=== PATIENT | female | born 1990 | race American Indian/Alaskan Native ===

== ENCOUNTER 2017-06-18 14:28 | Emergency (ER) | payer SELFPAY ==
[2017-06-18 14:43] VITALS: BP 127/91
--- NOTE | 2017-06-18 15:23 | Emergency Department Report ---
Abscess Boil HPI - HPI Chief Complaint: Skin/Abscess/Foreign Body Stated Complaint: BOIL IN RIGHT ARMPIT Time Seen by Provider: 06/18/17 15:19 Duration: 1 Week Location: Upper Extremity Severity: Mild History: Yes Pain, Yes Previous History, No Fever, No Purulent Drainage, No Numbness, No Foreign Body, No Insect Bite Home Medications: Previous Rx's Medication Instructions Recorded Last Taken Type Sulfamethoxazole/Trimethoprim 1 each PO BID #10 tablet 06/18/17 Unknown Rx [Bactrim DS TAB] traMADol [Ultram] 50 mg PO Q6HR PRN #12 tablet 06/18/17 Unknown Rx Allergies/Adverse Reactions: Allergies Allergy/AdvReac Type Severity Reaction Status Date / Time No Known Allergies Allergy Unverified 06/18/17 14:43 ED Review of Systems ROS: Stated complaint: BOIL IN RIGHT ARMPIT Other details as noted in HPI Comment: All other systems reviewed and negative Constitutional: no symptoms reported, see HPI. denies: chills Eyes: as per HPI. denies: eye pain ENT: as per HPI. denies: ear pain, throat pain Respiratory: no symptoms reported, see HPI. denies: cough, orthopnea Cardiovascular: as per HPI. denies: chest pain, palpitations, dyspnea on exertion, orthopnea Endocrine: no symptoms reported, see HPI. denies: excessive sweating, flushing , intolerance to cold, intolerance to heat Gastrointestinal: as per HPI. denies: abdominal pain, nausea, vomiting Genitourinary: as per HPI. denies: urgency, dysuria Musculoskeletal: as per HPI. denies: back pain Skin: as per HPI, lesions Neurological: as per HPI. denies: headache, weakness Psychiatric: as per HPI. denies: anxiety, depression Hematological/Lymphatic: as per HPI. denies: easy bleeding ED Past Medical Hx - Past Medical History Additional medical history: hidradenitis - Surgical History Past Surgical History?: Yes Additional Surgical History: cholecystectomy - Social History Smoking Status: Former Smoker Substance Use Type: Alcohol - Medications Home Medications: Home Medications Medication Instructions Recorded Confirmed Last Taken Type Sulfamethoxazole/Trimethoprim 1 each PO BID #10 tablet 06/18/17 Unknown Rx [Bactrim DS TAB] traMADol [Ultram] 50 mg PO Q6HR PRN #12 tablet 06/18/17 Unknown Rx ED Abscess Boil Physical Exam - Exam General: Vital signs noted. No distress. Alert and acting appropriately. small dime size boil under r arm a/c will need gen surg fu ED Course Vital Signs 06/18/17 14:34 Temperature 98.3 F Pulse Rate 74 Blood Pressure 127/91 O2 Sat by Pulse 99 Oximetry - Reevaluation(s) Reevaluation #1: 06/18/17 15:20 vss no fever non ill no toxic small boil wo flat. no i/d needed Critical care attestation.: If time is entered above; I have spent that time in minutes in the direct care of this critically ill patient, excluding procedure time. ED Medical Decision Making - Medical Decision Making see note - Differential Diagnosis a/c hidradenitis ED Disposition Clinical Impression: Hidradenitis Disposition: DC-01 TO HOME OR SELFCARE Is pt being admited?: No Does the pt Need Aspirin: No Condition: Stable Instructions: Abscess (ED) Additional Instructions: epsom salt soaks three times per day for 20 min each time med as ordered follow up gen surg Referrals: PRIMARY CARE, [Primary Care Provider] - 3-5 Days ONOFRE CHAMBERS DO [Staff Physician] - 3-5 Days Time of Disposition: 15:21
== END 2017-06-18 15:36 | disposition home or self-care (01) ==
LOC: ED 14:28
DX: L73.2 Hidradenitis suppurativa (principal); Z87.891 Personal history of nicotine dependence; Z90.49 Acquired absence of other specified parts of digestive tract
CPT/HCPCS: 99282

== ENCOUNTER 2017-06-20 21:57 | Emergency (ER) | payer SELFPAY ==
[2017-06-20] MEDS ORDERED: TYLENOL PO ONE (22:31)
[2017-06-20] MEDS ORDERED: TYLENOL ONE ×2 (22:33)
[2017-06-21 00:51] VITALS: BP 142/95
[2017-06-21] MEDS ORDERED: MORPHINE IM ONE (01:23)
[2017-06-21] MEDS ORDERED: ZOFRAN IM ONE (01:24)
[2017-06-21] MEDS ORDERED: TRIMOX PO ONE (01:24)
--- NOTE | 2017-06-21 01:28 | Emergency Department Report ---
ED ENT HPI - General Chief complaint: Dental/Oral Stated complaint: HEADACHE/MOUTH PAIN Time Seen by Provider: 06/21/17 01:23 Source: patient Mode of arrival: Ambulatory Limitations: No Limitations - History of Present Illness Initial comments: 27 y/o female presents to the emergency room with complaints of dental pain since yesterday. Pain is progressively getting worse. Patient has tried over- the-counter remedy, she has used Anbesol without any relief. No fever, no nausea, no vomiting, no diarrhea MD complaint: tooth pain -: Gradual (since yesterday progressively getting worse) Location: tooth # (30, 31, 32) Severity: moderate Severity scale (0 -10): 7 Quality: stabbing, aching, sharp Consistency: constant Improves with: none Worsens with: swallowing, eating Context- Dental: history of dental caries, poor dental care Associated Symptoms: gum swelling, toothache. denies: fever, cough, pain with swallowing, sore throat, tinnitus, hearing loss, discharge from ear, rhinorrhea - Related Data Previous Rx's Medication Instructions Recorded Last Taken Type Sulfamethoxazole/Trimethoprim 1 each PO BID #10 tablet 06/18/17 Unknown Rx [Bactrim DS TAB] traMADol [Ultram] 50 mg PO Q6HR PRN #12 tablet 06/18/17 Unknown Rx Amoxicillin [Trimox CAP] 500 mg PO Q8H #30 capsule 06/21/17 Unknown Rx Ibuprofen [Motrin 800 MG tab] 800 mg PO Q8HR PRN #30 tablet 06/21/17 Unknown Rx Allergies Allergy/AdvReac Type Severity Reaction Status Date / Time No Known Allergies Allergy Unverified 06/18/17 14:43 ED Dental HPI - General Chief complaint: Dental/Oral Stated complaint: HEADACHE/MOUTH PAIN Time Seen by Provider: 06/21/17 01:23 Source: patient Mode of arrival: Ambulatory Limitations: No Limitations - Related Data Previous Rx's Medication Instructions Recorded Last Taken Type Sulfamethoxazole/Trimethoprim 1 each PO BID #10 tablet 06/18/17 Unknown Rx [Bactrim DS TAB] traMADol [Ultram] 50 mg PO Q6HR PRN #12 tablet 06/18/17 Unknown Rx Amoxicillin [Trimox CAP] 500 mg PO Q8H #30 capsule 06/21/17 Unknown Rx Ibuprofen [Motrin 800 MG tab] 800 mg PO Q8HR PRN #30 tablet 06/21/17 Unknown Rx Allergies Allergy/AdvReac Type Severity Reaction Status Date / Time No Known Allergies Allergy Unverified 06/18/17 14:43 ED Review of Systems ROS: Stated complaint: HEADACHE/MOUTH PAIN Other details as noted in HPI Comment: All other systems reviewed and negative Constitutional: see HPI. denies: diaphoresis, fever, malaise, weakness Eyes: denies: eye pain, eye discharge, vision change ENT: as per HPI, dental pain. denies: ear pain, throat pain Respiratory: denies: cough, shortness of breath, SOB with exertion, SOB at rest Cardiovascular: denies: chest pain, palpitations, dyspnea on exertion, edema, syncope, paroxysmal nocturnal dyspnea Endocrine: no symptoms reported Gastrointestinal: denies: nausea, vomiting, diarrhea, constipation, hematemesis Genitourinary: denies: dysuria, frequency, discharge Skin: denies: pruritus Neurological: denies: numbness, paresthesias ED Past Medical Hx - Past Medical History Previous Medical History?: No Additional medical history: hidradenitis - Surgical History Additional Surgical History: cholecystectomy - Social History Smoking Status: Current Some Day Smoker Substance Use Type: Alcohol, Marijuana - Medications Home Medications: Home Medications Medication Instructions Recorded Confirmed Last Taken Type Sulfamethoxazole/Trimethoprim 1 each PO BID #10 tablet 06/18/17 Unknown Rx [Bactrim DS TAB] traMADol [Ultram] 50 mg PO Q6HR PRN #12 tablet 06/18/17 Unknown Rx Amoxicillin [Trimox CAP] 500 mg PO Q8H #30 capsule 06/21/17 Unknown Rx Ibuprofen [Motrin 800 MG tab] 800 mg PO Q8HR PRN #30 tablet 06/21/17 Unknown Rx ED Physical Exam - General Limitations: No Limitations General appearance: alert, in distress (moderate distress) - Head Head exam: Present: atraumatic, normocephalic - Eye Eye exam: Present: normal appearance, PERRL, EOMI. Absent: scleral icterus, conjunctival injection - ENT ENT exam: Present: mucous membranes moist, other (swollen gums overlying tooth # 30, 31 and 32. Some areas of dental caries noted) - Neck Neck exam: Present: normal inspection, full ROM, lymphadenopathy. Absent: tenderness, meningismus, thyromegaly - Respiratory Respiratory exam: Present: normal lung sounds bilaterally. Absent: respiratory distress, wheezes, rales, rhonchi, stridor, chest wall tenderness, accessory muscle use, decreased breath sounds, prolonged expiratory - Cardiovascular Cardiovascular Exam: Present: regular rate, normal rhythm, normal heart sounds. Absent: bradycardia, tachycardia, systolic murmur, diastolic murmur - GI/Abdominal GI/Abdominal exam: Present: soft, normal bowel sounds. Absent: distended, tenderness, guarding, rebound, hyperactive bowel sounds, hypoactive bowel sounds , organomegaly, mass, bruit - Neurological Exam Neurological exam: Present: alert, oriented X3, CN II-XII intact, motor sensory deficit ED Course Vital Signs 06/20/17 06/20/17 06/20/17 22:10 22:26 22:32 Temperature 98.9 F 98.9 F Pulse Rate 80 80 Respiratory 18 18 18 Rate Blood Pressure 129/83 129/83 Blood Pressure [Right] O2 Sat by Pulse 100 100 Oximetry 06/21/17 00:50 Temperature 98 F Pulse Rate 69 Respiratory 18 Rate Blood Pressure Blood Pressure 142/95 [Right] O2 Sat by Pulse 100 Oximetry Critical Care Time: No Critical care attestation.: If time is entered above; I have spent that time in minutes in the direct care of this critically ill patient, excluding procedure time. ED Disposition Clinical Impression: Dental abscess, Gingivitis Disposition: TO HOME OR SELFCARE Is pt being admited?: No Does the pt Need Aspirin: No Condition: Stable Instructions: Dental Abscess (ED), Gingivitis (ED) Additional Instructions: Gargle with warm salt water as needed. Follow up with a dentist of choice [facility] Prescriptions: Amoxicillin [Trimox CAP] 500 mg PO Q8H #30 capsule Ibuprofen [Motrin 800 MG tab] 800 mg PO Q8HR PRN #30 tablet PRN Reason: Pain Referrals: PRIMARY CARE,MD [Primary Care Provider] - 3-5 Days Time of Disposition: 02:10
[2017-06-21] MEDS ORDERED: MORPHINE ONE (02:27)
== END 2017-06-21 02:35 | disposition home or self-care (01) ==
LOC: ED 21:57
DX: K04.7 Periapical abscess without sinus (principal); K05.10 Chronic gingivitis, plaque induced; F17.210 Nicotine dependence, cigarettes, uncomplicated; F12.10 Cannabis abuse, uncomplicated
CPT/HCPCS: 96372; 99282; J2270; J2405

== ENCOUNTER 2017-10-03 15:11 | Emergency (ER) | payer SELFPAY ==
--- NOTE | 2017-10-03 16:05 | Emergency Department Report ---
ED Head Injury/Laceration HPI - HPI Occurred When: Today Tetanus Status: Up to Date Symptoms: Loss of Consciousness: No, Nausea: No, Blurred Vision: No, Unusual Behavior: No, Headache: Yes, Swelling: No, Break in Skin: Yes, Bleeding: Yes Other History: 27-year-old female past medical history none presents with complaint of laceration to top of scalp. Patient accidentally hit the top of her head on a staircase while running down stairs. Patient states she feels slightly dizzy and has mild headache but is otherwise fully lucid and oriented 3. Patient is ambulatory without assistance accompanied by family member at bedside. Visible bleeding from top of scalp. Tetanus vaccine up-to-date as per patient. Patient denies any other injuries. ED General PMH - Past Medical History General Medical History: no medical history - Social History Smoking Status: Current Every Day Smoker ED Review of Systems ROS: Stated complaint: FALL/HEAD INJURY Other details as noted in HPI Constitutional: denies: chills, fever Eyes: denies: eye pain, eye discharge, vision change ENT: denies: ear pain, throat pain Respiratory: denies: cough, shortness of breath, wheezing Cardiovascular: denies: chest pain, palpitations Endocrine: no symptoms reported Gastrointestinal: denies: abdominal pain, nausea, diarrhea Genitourinary: denies: urgency, dysuria, discharge Musculoskeletal: denies: back pain, joint swelling, arthralgia Skin: denies: rash, lesions Neurological: denies: headache, weakness, paresthesias Psychiatric: denies: anxiety, depression Hematological/Lymphatic: denies: easy bleeding, easy bruising Head Inj w/lac Physical Exam - Exam General: Vital signs noted. No distress. Alert and acting appropriately. Adult Head Front + Back: 1 - 1.5 cm horizontal laceration here Wound Length (cm): 2 Chest, Abd, & Ext: Yes Clear Lung Sounds, Yes Regular Heart Rhythm, No Neck Pain , No Chest Injury/Pain, No Heart Murmur, No Abdominal Tenderness, No Back Tenderness, No Extremity Injury Neuroligical (Head Inj W/O Lac: Yes Normal Speech, Yes Normal Gait, No Lethargy , No Disorientation, No Focal Numbness, No Focal Weakness - Laceration /Wound Repair Head Wound Location: head Wound Length (cm): 2 Wound's Depth, Shape: superficial Irrigated w/ Saline (ccs): 200 Anesthesia: 1% Lidocaine Volume Anesthetic (ccs): 3 Progress: Area of laceration anesthetized and stapled using 3 christiano. Good wound approximation achieved ED Critical Care Note - Critical Care Note Comments: A/P: Scalp Laceration, concussion 1- Christiano to be removed in 7 days 2-tetanus vaccine up-to-date 3-Tylenol when necessary, triple antibiotic ointment 4- pt advised to return to the ED for any fevers chills pus drainage erythema at site of laceration. 5- Cranial nerves 2, 3, 4, 5, 6, 7, 8,10, 11, 12 intact on clinical exam, patient is fully lucid awake alert and oriented 3 conversant. Denies any upper or lower extremity paresthesias and has 5/5 strength in bilateral upper and lower extremities on clinical exam. Follow-up with primary medical doctor this week. patient given precautions, instructed to return to the ED for any confusion, lethargy, chest pain, shortness of breath, abdominal pain, inability to tolerate by mouth, paresthesias, inability to ambulate. 6- I discussed case with Dr. Bruce before discharge. Patient has no clinical signs of mastoiditis on examination. No postauricular tenderness or swelling behind auricle. No overt signs of infection and in her ear canal or overlying tympanic membrane. Patient is asymptomatic. I advised patient to follow up with primary care or to return to the ED for any worsening headaches ear drainage extrusion of ear swelling around the ear or redness of the area surrounding ear. Patient agreed to these parameters. Pt independently ambulatory without assistance upon discharge ED Disposition Clinical Impression: Concussion Qualifiers: Encounter type: initial encounter Loss of consciousness presence/duration: without LOC Qualified Code(s): S06.0X0A - Concussion without loss of consciousness, initial encounter Minor head injury Qualifiers: Encounter type: initial encounter Qualified Code(s): S00.90XA - Unspecified superficial injury of unspecified part of head, initial encounter Scalp laceration Qualifiers: Encounter type: initial encounter Qualified Code(s): S01.01XA - Laceration without foreign body of scalp, initial encounter Disposition: DC-01 TO HOME OR SELFCARE Is pt being admited?: No Does the pt Need Aspirin: No Condition: Stable Instructions: Laceration (ED), Concussion (ED), Acute Wound Care (ED), Post Concussion Syndrome (ED), Staple Care (ED) Additional Instructions: Christiano to be removed in 7 days Prescriptions: Acetaminophen [Acetaminophen TAB] 500 mg PO Q6HR PRN #30 tablet PRN Reason: Pain Bacitracin Zinc Oint [Antibiotic Oint] 1 applicatio TP BID #1 tube Referrals: [facility] [Outside] - 3-5 Days [facility] [Outside] - 3-5 Days Forms: Accompanied Note, Work/School Release Form(ED) Time of Disposition: 17:20
[2017-10-03] MEDS ORDERED: TYLENOL #3 PO ONE (16:09)
[2017-10-03] MEDS ORDERED: ZOFRAN ODT PO ONE (16:09)
--- NOTE | 2017-10-03 16:32 | Emergency Department Report ---
Chief Complaint: Head Injury Stated Complaint: FALL/HEAD INJURY Time Seen by Provider: 10/03/17 16:03 - HPI History of Present Illness: The patient is a 27-year-old female who presents for evaluation of headache. The patient reports sustaining trauma to the head after running into a staircase at home one to 2 hours prior to arrival. She complains of severe throbbing headache since the incident. She did sustain a scalp wound and bleeding which is not controlled. She denies neck pain, chest pain, abdominal pain, back pain, dyspnea, pain or injury to the extremities. - Exam Vital Signs: Vital Signs 10/03/17 15:17 Temperature 97.8 F Pulse Rate 80 Respiratory 16 Rate Blood Pressure 131/97 O2 Sat by Pulse 100 Oximetry MSE screening note: Focused history and physical exam performed. Due to findings the following was ordered: CT scan of the head and facial bones ordered. A small ones on his scalp laceration was identified. The patient received laceration repair once medically cleared. ED Disposition for MSE Condition: Stable Referrals: PRIMARY CARE, [Primary Care Provider] - 3-5 Days
--- NOTE | 2017-10-03 16:50 | Cat Scan Report ---
FINAL REPORT EXAM: CT HEAD/BRAIN WO CON HISTORY: pain, trauma TECHNIQUE: CT head without contrast PRIORS: None. FINDINGS: No acute intra-axial or extra-axial hemorrhage is identified. There is no evidence of midline shift or mass effect. The ventricles and sulci are within normal limits. Chong-white matter differentiation is intact. No acute parenchymal abnormalities seen. Bony calvarium is grossly intact. Small amount of increased density is noted within left mastoid air cells which may reflect mastoiditis could be acute or. IMPRESSION: Findings suggestive of left mastoiditis which may be acute or chronic No acute intracranial findings
--- NOTE | 2017-10-03 16:53 | Cat Scan Report ---
FINAL REPORT EXAM: CT FACIAL BONES WO CON HISTORY: pain, trauma TECHNIQUE: Maxillofacial CT with coronal and sagittal multiplanar reconstruction PRIORS: None. FINDINGS: The nasal bone is intact. The zygomatic arches are within normal limits. No evidence of fluid level within the paranasal sinuses. No intraorbital abnormalities seen. No facial fractures are identified. The TM joints and the mandible are within normal limits. IMPRESSION: Negative. No evidence of acute facial bone fracture.
[2017-10-03 17:39] VITALS: BP 130/78
== END 2017-10-03 17:39 | disposition home or self-care (01) ==
LOC: ED 15:11
DX: S06.0X0A Concussion without loss of consciousness, initial encounter (principal); S01.01XA Laceration without foreign body of scalp, initial encounter; F17.200 Nicotine dependence, unspecified, uncomplicated; W10.8XXA Fall (on) (from) other stairs and steps, initial encounter; Y93.89 Activity, other specified; Y92.89 Other specified places as the place of occurrence of the external cause; Y99.8 Other external cause status
CPT/HCPCS: 70450; 70486; 99283; Q0162

== ENCOUNTER 2018-04-27 09:14 | Emergency (ER) | payer SELFPAY ==
[2018-04-27 09:34] VITALS: BP 149/106
[2018-04-27 10:22] LABS: HCG Qualitative,Urine Negative (Negative)
[2018-04-27 10:23] LABS: Bacteria,Urine 1+ /HPF (Negative); Bilirubin,Urine NEG (Negative); Blood,Urine NEG (Negative); Color,Urine Yellow (Yellow); Mucus,Urine 3+ /HPF; Protein,Urine <15 mg/dL mg/dL (Negative)
== END 2018-04-27 09:52 | disposition left against medical advice (07) ==
LOC: ED 09:14
DX: R11.10 Vomiting, unspecified (principal); R10.10 Upper abdominal pain, unspecified; R07.89 Other chest pain; Z53.21 Procedure and treatment not carried out due to patient leaving prior to being seen by health care provider
CPT/HCPCS: 81001; 81025; 93005; 93010

== ENCOUNTER 2020-10-29 19:13 | Emergency (ER) | payer SELFPAY ==
[2020-10-29 19:57] VITALS: BP 163/111
[2020-10-29] MEDS ORDERED: LIDOCAINE (2%) 20 MG/1 ML VIAL 20 ML MDV INFILTRATI STA (19:57)
--- NOTE | 2020-10-29 19:59 | Emergency Department Report ---
Abscess Boil HPI - HPI Chief Complaint: Skin/Abscess/Foreign Body Stated Complaint: ARM PAIN Time Seen by Provider: 10/29/20 19:53 Duration: >1 Week (3 weeks) Severity: Moderate History: Yes Pain, No Fever, No Purulent Drainage, No Numbness, No Foreign Body, No Previous History, No Insect Bite HPI: c/o of re-emerging abscess to right axilla requiring I&D. No fever or c hills. No numbness. Denies PMH of DM or immunocompromising conditions. Home Medications: Previous Rx's Medication Instructions Recorded Last Taken Type ALBUTEROL Inhaler(NF) [VENTOLIN 2 puff IH Q4H PRN #1 inha 07/25/18 Unknown Rx Inhaler(NF)] Nicotine [Habitrol] 14 mg TD DAILY #14 patch 07/25/18 Unknown Rx Ketorolac [Toradol] 10 mg PO Q6H PRN #15 tablet 10/29/20 Unknown Rx Sulfamethoxazole/Trimethoprim 1 each PO BID #20 tablet 10/29/20 Unknown Rx [Bactrim DS TAB] cephALEXin [Keflex] 500 mg PO Q6HR #40 capsule 10/29/20 Unknown Rx Allergies/Adverse Reactions: Allergies Allergy/AdvReac Type Severity Reaction Status Date / Time No Known Allergies Allergy Unverified 06/18/17 14:43 ED Review of Systems ROS: Stated complaint: ARM PAIN Other details as noted in HPI Comment: All other systems reviewed and negative ED Past Medical Hx - Past Medical History Hx Congestive Heart Failure: No Hx Diabetes: No Hx Asthma: No Hx COPD: No Additional medical history: hidradenitis - Surgical History Additional Surgical History: cholecystectomy - Social History Smoking Status: Current Every Day Smoker - Medications Home Medications: Home Medications Medication Instructions Recorded Confirmed Last Taken Type ALBUTEROL Inhaler(NF) [VENTOLIN 2 puff IH Q4H PRN #1 inha 07/25/18 Unknown Rx Inhaler(NF)] Nicotine [Habitrol] 14 mg TD DAILY #14 patch 07/25/18 Unknown Rx Ketorolac [Toradol] 10 mg PO Q6H PRN #15 tablet 10/29/20 Unknown Rx Sulfamethoxazole/Trimethoprim 1 each PO BID #20 tablet 10/29/20 Unknown Rx [Bactrim DS TAB] cephALEXin [Keflex] 500 mg PO Q6HR #40 capsule 10/29/20 Unknown Rx ED Abscess Boil Physical Exam - Exam General: Vital signs noted. No distress. Alert and acting appropriately. Front/Back of Body, Lg (Color): 1 - axilla pain and abscess Size: >5 cm Exam: Yes Tenderness, Yes Fluctuance, Yes Surrounding Cellulites/Erythema, Yes Normal Neurologic Exam, Yes Normal Circulation, No Lymphangitis, No Crepitation, No Heart Murmur Critical care attestation.: If time is entered above; I have spent that time in minutes in the direct care of this critically ill patient, excluding procedure time. ED Disposition Clinical Impression: Hidradenitis axillaris Disposition: DC-01 TO HOME OR SELFCARE Is pt being admited?: No Does the pt Need Aspirin: No Condition: Stable Instructions: Hidradenitis Suppurativa Referrals: TIFFANY MELTON MD [Staff Physician] - 3-5 Days
== END 2020-10-29 21:39 | disposition home or self-care (01) ==
LOC: ED 19:13
DX: L73.2 Hidradenitis suppurativa (principal); F17.200 Nicotine dependence, unspecified, uncomplicated; Z79.899 Other long term (current) drug therapy; Z90.49 Acquired absence of other specified parts of digestive tract
CPT/HCPCS: 99282

== ENCOUNTER 2021-12-17 23:38 | Emergency (ER) | payer SELFPAY ==
[2021-12-17] MEDS ORDERED: SODIUM CHLORIDE 0.9% 1000 ML 1,000 ML IV ONE (23:53)
--- NOTE | 2021-12-18 00:24 | Emergency Department Report ---
ED General Adult HPI - General Chief complaint: Syncope Stated complaint: FALL/HIT HEAD/LOSS OF CONSCIOUSNESS Time Seen by Provider: 12/18/21 00:04 Source: patient Mode of arrival: Ambulatory Limitations: No Limitations - History of Present Illness Initial comments: Patient is a 31-year-old female status post bilateral mastectomy 1 month ago. Patient states she removed her dressings today and passed out. Patient states vasovagal i.e. "I got grossed out" patient denies headache no neck pain. No numbness no tingling. There is been no chest pain no nausea no vomiting. Patient denies cough fevers or chills. Patient is tolerating p.o. intake witho ut nausea or vomiting. Patient states she had bilateral mastectomy for hydradenitis breast cyst. Patient is currently alert oriented x3 amatory with steady gait. - Related Data Previous Rx's Medication Instructions Recorded Last Taken Type ALBUTEROL Inhaler(NF) [VENTOLIN 2 puff IH Q4H PRN #1 inha 07/25/18 Unknown Rx Inhaler(NF)] Nicotine [Habitrol] 14 mg TD DAILY #14 patch 07/25/18 Unknown Rx Ketorolac [Toradol] 10 mg PO Q6H PRN #15 tablet 10/29/20 Unknown Rx Sulfamethoxazole/Trimethoprim 1 each PO BID #20 tablet 10/29/20 Unknown Rx [Bactrim DS TAB] cephALEXin [Keflex] 500 mg PO Q6HR #40 capsule 10/29/20 Unknown Rx Allergies Allergy/AdvReac Type Severity Reaction Status Date / Time No Known Allergies Allergy Unverified 06/18/17 14:43 ED Review of Systems ROS: Stated complaint: FALL/HIT HEAD/LOSS OF CONSCIOUSNESS Other details as noted in HPI Constitutional: denies: chills, fever Eyes: denies: eye pain, eye discharge, vision change ENT: denies: ear pain, throat pain Respiratory: denies: cough, shortness of breath, wheezing Cardiovascular: denies: chest pain, palpitations Endocrine: no symptoms reported Gastrointestinal: denies: abdominal pain, nausea, vomiting, diarrhea Genitourinary: denies: urgency, dysuria, discharge Musculoskeletal: denies: back pain, joint swelling, arthralgia Skin: denies: rash, lesions Neurological: vertigo. denies: headache, weakness, numbness, paresthesias, confusion Psychiatric: denies: anxiety, depression Hematological/Lymphatic: denies: easy bleeding, easy bruising ED Past Medical Hx - Past Medical History Hx Congestive Heart Failure: No Hx Diabetes: No Hx Asthma: No Hx COPD: No Additional medical history: hidradenitis - Surgical History Past Surgical History?: Yes Additional Surgical History: cholecystectomy, bilateral mastectomy - Social History Smoking Status: Current Every Day Smoker - Medications Home Medications: Home Medications Medication Instructions Recorded Confirmed Last Taken Type ALBUTEROL Inhaler(NF) [VENTOLIN 2 puff IH Q4H PRN #1 inha 07/25/18 Unknown Rx Inhaler(NF)] Nicotine [Habitrol] 14 mg TD DAILY #14 patch 07/25/18 Unknown Rx Ketorolac [Toradol] 10 mg PO Q6H PRN #15 tablet 10/29/20 Unknown Rx Sulfamethoxazole/Trimethoprim 1 each PO BID #20 tablet 10/29/20 Unknown Rx [Bactrim DS TAB] cephALEXin [Keflex] 500 mg PO Q6HR #40 capsule 10/29/20 Unknown Rx ED Physical Exam - General Limitations: No Limitations General appearance: alert, in no apparent distress - Head Head exam: Present: normocephalic, normal inspection - Expanded Head Exam Expanded Head exam: Absent: laceration, abrasion, contusion, hematoma - Eye Eye exam: Present: normal appearance, PERRL, EOMI. Absent: conjunctival injection, nystagmus Pupils: Present: normal accommodation - ENT ENT exam: Present: normal orophraynx, mucous membranes moist, TM's normal bilaterally, normal external ear exam - Neck Neck exam: Present: normal inspection, full ROM. Absent: tenderness (No posterior vertebral point tenderness range of motion is intact and unrestricted all quadrants. There is no crepitus no ecchymosis no step-off.), lymphadenopathy - Respiratory Respiratory exam: Present: normal lung sounds bilaterally. Absent: respiratory distress, wheezes, stridor, chest wall tenderness - Cardiovascular Cardiovascular Exam: Present: regular rate, normal rhythm, normal heart sounds. Absent: systolic murmur, diastolic murmur, rubs, gallop - GI/Abdominal GI/Abdominal exam: Present: soft, normal bowel sounds. Absent: distended, tenderness, guarding, rebound, rigid, bruit, hernia - Rectal Rectal exam: Present: deferred - Extremities Exam Extremities exam: Present: normal inspection, full ROM, normal capillary refill - Back Exam Back exam: Present: normal inspection. Absent: full ROM, CVA tenderness (R), CVA tenderness (L) - Neurological Exam Neurological exam: Present: alert, oriented X3, CN II-XII intact, normal gait, reflexes normal. Absent: motor sensory deficit - Expanded Neurological Exam Expanded Patient oriented to: Present: person, place, time Speech: Present: fluid speech Cranial nerves: EOM's Intact: Normal, Gag Reflex: Normal, Tongue Deviation: Normal, Nystagmus: Normal Cerebellar function: Finger to Nose: Normal Motor strength exam: RUE: 5, LUE: 5, RLE: 5, LLE: 5 DTR: knee (R): 1+, knee (L): 1+ Best Eye Response ([place]): (4) open spontaneously Best Motor Response ([place]): (6) obeys commands Best Verbal Response ([place]): (5) oriented [place] Total: 15 - Psychiatric Psychiatric exam: Present: normal affect, normal mood - Skin Skin exam: Present: warm, dry, intact, normal color, other (Mastectomy dressings are intact and dry abdominal binder intact patient declines further exam). Absent: rash ED Course Vital Signs 12/17/21 23:43 Temperature 98.7 F Pulse Rate 87 Respiratory 18 Rate Blood Pressure 116/66 O2 Sat by Pulse 99 Oximetry ED Medical Decision Making - Lab Data Result diagrams: 12/18/21 00:07 12/18/21 00:07 Labs 12/17/21 12/18/21 12/18/21 Unknown 00:07 00:07 WBC 11.6 H RBC 4.23 Hgb 11.6 Hct 36.7 MCV 87 MCH 27 L MCHC 32 RDW 14.0 Plt Count 182 Lymph % (Auto) 15.1 [place] % (Auto) 4.5 Eos % (Auto) 2.0 Baso % (Auto) 0.3 Lymph # (Auto) 1.7 [place] # (Auto) 0.5 Eos # (Auto) 0.2 Baso # (Auto) 0.0 Seg Neutrophils % 78.1 H Seg Neutrophils # 9.0 H Sodium 140 Potassium 4.2 Chloride 103.1 Carbon Dioxide 23 Anion Gap 18 BUN 12 Creatinine 0.8 Estimated GFR > 60 BUN/Creatinine Ratio 15 Glucose 142 H Calcium 8.9 Total Bilirubin < 0.20 AST 15 ALT 10 Alkaline Phosphatase 50 Troponin T < 0.010 Total Protein 6.5 Albumin 3.8 L Albumin/Globulin Ratio 1.4 Urine Color Yellow Urine Turbidity Clear Urine pH 5.0 Ur Specific [place] 1.024 Urine Protein <15 mg/dl Urine Glucose (UA) Neg Urine Ketones Neg Urine Blood Neg Urine Nitrite Neg Urine Bilirubin Neg Urine Urobilinogen 2.0 Ur Leukocyte Esterase Neg Urine WBC (Auto) 2.0 Urine RBC (Auto) 4.0 U Epithel Cells (Auto) 5.0 Urine Mucus 3+ Labs 12/17/21 12/18/21 12/18/21 Unknown 00:07 00:07 WBC 11.6 H RBC 4.23 Hgb 11.6 Hct 36.7 MCV 87 MCH 27 L MCHC 32 RDW 14.0 Plt Count 182 Lymph % (Auto) 15.1 [place] % (Auto) 4.5 Eos % (Auto) 2.0 Baso % (Auto) 0.3 Lymph # (Auto) 1.7 [place] # (Auto) 0.5 Eos # (Auto) 0.2 Baso # (Auto) 0.0 Seg Neutrophils % 78.1 H Seg Neutrophils # 9.0 H Sodium 140 Potassium 4.2 Chloride 103.1 Carbon Dioxide 23 Anion Gap 18 BUN 12 Creatinine 0.8 Estimated GFR > 60 BUN/Creatinine Ratio 15 Glucose 142 H Calcium 8.9 Total Bilirubin < 0.20 AST 15 ALT 10 Alkaline Phosphatase 50 Troponin T < 0.010 Total Protein 6.5 Albumin 3.8 L Albumin/Globulin Ratio 1.4 Urine Color Yellow Urine Turbidity Clear Urine pH 5.0 Ur Specific [place] 1.024 Urine Protein <15 mg/dl Urine Glucose (UA) Neg Urine Ketones Neg Urine Blood Neg Urine Nitrite Neg Urine Bilirubin Neg Urine Urobilinogen 2.0 Ur Leukocyte Esterase Neg Urine WBC (Auto) 2.0 Urine RBC (Auto) 4.0 U Epithel Cells (Auto) 5.0 Urine Mucus 3+ Urine HCG, Qual 12/18/21 Unknown WBC RBC Hgb Hct MCV MCH MCHC RDW Plt Count Lymph % (Auto) [place] % (Auto) Eos % (Auto) Baso % (Auto) Lymph # (Auto) [place] # (Auto) Eos # (Auto) Baso # (Auto) Seg Neutrophils % Seg Neutrophils # Sodium Potassium Chloride Carbon Dioxide Anion Gap BUN Creatinine Estimated GFR BUN/Creatinine Ratio Glucose Calcium Total Bilirubin AST ALT Alkaline Phosphatase Troponin T Total Protein Albumin Albumin/Globulin Ratio Urine Color Urine Turbidity Urine pH Ur Specific [place] Urine Protein Urine Glucose (UA) Urine Ketones Urine Blood Urine Nitrite Urine Bilirubin Urine Urobilinogen Ur Leukocyte Esterase Urine WBC (Auto) Urine RBC (Auto) U Epithel Cells (Auto) Urine Mucus Urine HCG, Qual Negative - EKG Data EKG shows normal: sinus rhythm, axis, QRS complexes Rate: normal - EKG Data When compared to previous EKG there are: previous EKG unavailable Interpretation: nonspecific ST-T wave susana (Sinus rhythm with prolonged SD interval ST elevation probable early repull pattern, no ST elevated AL interpreted by ED attending.) - Radiology Data Radiology results: report reviewed, image reviewed CHEST 1 VIEW INDICATION / CLINICAL INFORMATION: syncope. COMPARISON: Chest x-ray 07/24/2018 FINDINGS: SUPPORT DEVICES: None. HEART / MEDIASTINUM: No significant abnormality. LUNGS / PLEURA: No significant pulmonary or pleural abnormality. BONES: No significant osseous abnormality. ADDITIONAL FINDINGS: No significant additional findings. IMPRESSION: 1. No active cardiopulmonary disease. Signer Name: Roxanna Martinez II, MD Signed: 12/18/2021 3:29 AM Workstation Name: [id number] Transcribed By: GUEVARA Dictated By: ROXANNA MARTINEZ II, MD Electronically Authenticated By: ROXANNA MARTINEZ II, MD Signed Date/Time: 12/18/21328 DD/ 8 TD/TT: - Medical Decision Making Labs noted normal, EKG normal sinus rhythm prolonged SD interval, early refill no ST elevated AL interpreted by ED attending. Chest x-ray normal no infiltrates no opacities, patient remains alert oriented x3 patient is ambulatory with steady gait. Patient tolerating p.o. intake without nausea or vomiting. There are no other neurodeficits. Patient peers well-nourished well- hydrated patient with no acute distress and appears nontoxic. This is likely vasovagal plan DC to home, follow-up with primary care doctor in 2 to 3 days. Patient verbalized agreement understanding of discharge plan. Patient DC to home with family members at this time via POV. Critical care attestation.: If time is entered above; I have spent that time in minutes in the direct care of this critically ill patient, excluding procedure time. ED Disposition Clinical Impression: Syncope Qualifiers: Syncope type: vasovagal syncope Qualified Code(s): R55 - Syncope and collapse Disposition: 01 HOME / SELF CARE / HOMELESS Is pt being admited?: No Does the pt Need Aspirin: No Condition: Stable Instructions: Syncope, [id number], Syncope (ED) Additional Instructions: Hydrate as directed, follow-up with your doctor in 2 to 3 days. Return to emergency department should symptoms worsen. Referrals: EVITA ESCAMILLA MD [Staff Physician] - 3-5 Days Forms: Work/School Release Form(ED) Time of Disposition: 03:49
[2021-12-18 00:48] LABS: Basophils % (Auto) 0.3 % (0.0-1.8); Eosinophils # (Auto) 0.2 K/mm3 (0.0-0.4); Hematocrit 36.7 % (30.3-42.9); Hemoglobin 11.6 gm/dl (10.1-14.3); Lymphocytes # (Auto) 1.7 K/mm3 (1.2-5.4); Lymphocytes % (Auto) 15.1 % (13.4-35.0); Mean Corpuscular HGB Conc 32 % (30-34); Mean Corpuscular Volume 87 fl (79-97); Monocytes # (Auto) 0.5 K/mm3 (0.0-0.8); Monocytes % (Auto) 4.5 % (0.0-7.3); Platelet Count 182 K/mm3 (140-440); Red Blood Count 4.23 M/mm3 (3.65-5.03)
[2021-12-18 01:32] LABS: Bilirubin,Urine NEG (Negative); Blood,Urine NEG (Negative); Color,Urine Yellow (Yellow); Mucus,Urine 3+ /HPF; Protein,Urine <15 mg/dL mg/dL (Negative)
[2021-12-18 01:35] LABS: Alanine Aminotransferase 10 units/L (7-56); Albumin 3.8 g/dL (3.9-5); BUN/Creatinine Ratio 15; Blood Urea Nitrogen 12 mg/dL (7-17); Calcium 8.9 mg/dL (8.4-10.2); Hemolysis Index 21
[2021-12-18 03:14] LABS: HCG Qualitative,Urine Negative (Negative)
--- NOTE | 2021-12-18 03:33 | XRay Report ---
CHEST 1 VIEW INDICATION / CLINICAL INFORMATION: syncope. COMPARISON: Chest x-ray 07/24/2018 FINDINGS: SUPPORT DEVICES: None. HEART / MEDIASTINUM: No significant abnormality. LUNGS / PLEURA: No significant pulmonary or pleural abnormality. BONES: No significant osseous abnormality. ADDITIONAL FINDINGS: No significant additional findings. IMPRESSION: 1. No active cardiopulmonary disease. Signer Name: Fabian Martinez II, MD Signed: 12/18/2021 3:29 AM Workstation Name: [id number]
[2021-12-18 04:09] VITALS: BP 112/62
--- NOTE | 2021-12-18 10:18 | Electrocardiograph Report ---
[facility] Test Date: 2021-12-18 Test Time: 02:09:42 Pat Name: RAMIREZ ARMIJO Department: Room: Gender: F [employer] Manager: MARIA LUISA : 1990 Requested By: JAIRO WALKER Order Number: [id number] Reading MD: Paulie Mensah Measurements Intervals [place] Rate: 65 P: 69 NE: 299 QRS: 69 QRSD: 108 T: 55 QT: 402 QTc: 418 Interpretive Statements Sinus rhythm Prolonged NE interval RSR' IN V1 OR V2, PROBABLY NORMAL VARIANT No previous ECG available for comparison Electronically Signed On 12-18-2021 10:18:03 EDT by Paulie Mensah
== END 2021-12-18 04:09 | disposition home or self-care (01) ==
LOC: ED 23:38
DX: R55 Syncope and collapse (principal); F17.200 Nicotine dependence, unspecified, uncomplicated; Z98.890 Other specified postprocedural states; Z79.899 Other long term (current) drug therapy
CPT/HCPCS: 36415; 71045; 80053; 81001; 81025; 84484; 85025; 93005; 99284